=== PATIENT | male | born 1985 | race Caucasian/White ===

== ENCOUNTER 2018-03-07 19:39 | Emergency (ER) | payer BC ==
[~2018-03-07] VITALS: Ht 188 cm; Wt 71.4 kg
[~2018-03-07 19:39] MED LIST: NAPROXEN500 MG PO
[2018-03-07 19:49] VITALS: BP 156/90
== END 2018-03-07 21:53 | disposition home or self-care (01) ==
LOC: EME 19:39
DX: S50.311A Abrasion of right elbow, initial encounter (principal); S50.811A Abrasion of right forearm, initial encounter; S40.812A Abrasion of left upper arm, initial encounter; S80.212A Abrasion, left knee, initial encounter; S50.01XA Contusion of right elbow, initial encounter; S60.221A Contusion of right hand, initial encounter; V00.131A Fall from skateboard, initial encounter; Y93.51 Activity, roller skating (inline) and skateboarding
CPT/HCPCS: 73080; 73090; 73130; 99281; 99283